=== PATIENT | male | born 1990 | race Caucasian/White ===

== ENCOUNTER 2021-11-03 13:08 | Outpatient (REF) | payer OTHER, SELFPAY ==
[2021-11-03 14:32] LABS: COVID-19 Test Positive (Negative); IDNOW Serial# 16C4AD1C
== END 2021-11-03 13:09 | disposition home or self-care (01) ==
LOC: HO.LAB 13:08
PROVIDERS: Visit Provider Internal Medicine
DX: Z20.822 Contact with and (suspected) exposure to COVID-19 (principal)
CPT/HCPCS: 87635; C9803